=== PATIENT | female | born 2000 | race Caucasian/White ===

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

== ENCOUNTER 2020-06-18 23:19 | Emergency (ER) | payer OTHER ==
[~2020-06-18] VITALS: Ht 154.9 cm; Wt 77.3 kg
[~2020-06-18 23:19] MED LIST: ONDA4TAB96 PO
[2020-06-18 23:21] VITALS: BP 146/81
[2020-06-19] MEDS ORDERED: BACITRACIN 0.9 GM PACKET OINTMENT TP ONE (01:30)
[2020-06-19] MEDS ORDERED: LIDOCAINE 1% 10 ML VIAL ID ONE (01:30)
== END 2020-06-19 02:27 | disposition home or self-care (01) ==
LOC: EMS 23:19
DX: S61.212A Laceration without foreign body of right middle finger without damage to nail, initial encounter (principal); F12.90 Cannabis use, unspecified, uncomplicated; W26.8XXA Contact with other sharp object(s), not elsewhere classified, initial encounter; Y93.89 Activity, other specified; Y92.89 Other specified places as the place of occurrence of the external cause; Y99.8 Other external cause status
CPT/HCPCS: 12001; 99282; J3490